=== PATIENT | male | born 1970 | race Hispanic/Latino ===

== ENCOUNTER 2019-09-09 14:25 | Emergency (ER) | payer OTHER | END 2019-09-09 14:57 | disposition home or self-care (01) | LOC: ERS 14:25 | DX: Z20.828 Contact with and (suspected) exposure to other viral communicable diseases (principal) | CPT/HCPCS: 99283 ==

== ENCOUNTER 2019-09-15 12:15 | Emergency (ER) | payer OTHER ==
[2019-09-16 12:17] LABS: SARS-CoV-2 MS2 Positive; SARS-CoV-2 N Gene Positive; SARS-CoV-2 S Gene Positive; SARS-CoV-2 orf1ab Positive
== END 2019-09-15 12:59 | disposition home or self-care (01) ==
LOC: ERS 12:15
DX: Z53.21 Procedure and treatment not carried out due to patient leaving prior to being seen by health care provider (principal)
CPT/HCPCS: 87635; U0003